=== PATIENT | female | born 1970 | race Caucasian/White ===

== ENCOUNTER → 2016-08-07 | Outpatient (CLI) | payer MEDICARE ==
[~2016-08-07] MED LIST: ALLEGRA ALLERG180 MG PO; GABAPENTIN100 MG PO; JUNEL FE 1.5-31 EACH PO; OMEGA 3-6-9 CO1 EACH PO; PRISTIQ50 MG PO; VALTREX50 MG/ML PO
== END | disposition home or self-care (01) ==
LOC: AMB 08:30
PROC: 0HBLXZZ Excision of Left Lower Leg Skin, External Approach (ICD-10-PCS; principal; 2016-08-07)
DX: L72.11 Pilar cyst (principal)
CPT/HCPCS: 88304